=== PATIENT | male | born 2005 | race Caucasian/White ===

== ENCOUNTER 2024-12-06 18:06 | Inpatient (IN) | payer OTHER, SELFPAY ==
[2024-12-06 18:59] VITALS: BP 130/73; PULSE 107; RESP 16; TEMP 36.5; BMI 41.1
--- NOTE | 2024-12-06 20:06 | HP.PCM_ITS ---
HPI - General General Date of Admission: 12/06/24 Date of Service: 12/07/24 Chief Complaint: Here for rehabilitation. HPI Narrative KLAUDIA CHAMPAGNE, is a 19 Male who presents with followin11/30/2024 Admit [facility]. Tripped, fell, bilateral ankle pain, bilateral foot pain. Surgery with podiatry scheduled 12/02/2024. Unable to care for shelf. CT showed closed trimalleolar fracture left ankle, avulsion fracture right foot. Lovenox 40mg sc bid for dvt prophylaxis. 12/02/2024 Ortho performed ORIF left ankle fracture. NWB LLE with splint, NWB RLE. Percocet inadequate for pain, add IV pain medications. PT/OT, consider SNF. Resume Lovenox dvt prophylaxis. 12/03/2024 Tylenol, Percocet, Morphine for pain control. Miralax, Lactulose, senna for bowel regimen. NWB. PT/OT for SNF. 12/06/2024 Admit to TCU with debility, here for rehabilitation, strengthening, prior to discharge home. [facility] Medical History (Updated 12/06/24 @ 20:[address] Rolf Clifton MD) BMI 40.0-44.9, adult Morbid obesity Ankle fracture, right Ankle fracture, left Medical History no medical history Home Medications ?Medication ?Instructions ?Recorded ?Last Taken ?Type acetaminophen 325 mg capsule 650 mg PO Q4H PRN fever 0 12/06/24 Unknown History cholecalciferol (vitamin D3) 50 2,000 unit PO DAILY Smalls pplement 12/06/24 Unknown History mcg (2,000 unit) capsule lactulose 20 gram/30 mL oral 20 g PO DAILY Constipatio n 12/06/24 Unknown History solution oxycodone-acetaminophen 5 mg-325 1 tab PO Q4H Pain 08/20 Unknown History mg tablet (Endocet) polyethylene glycol 3350 17 17 g PO DAILY Constipation 12/06/24 Unknown History gram/dose oral powder (Miralax) sennosides 8.6 mg-docusate sodium 2 tab-cap PO QHS Con stipation 12/06/24 Unknown History 50 mg tablet (Senna Plus) Allergy/AdvReac Type Severity Reaction Status Date / Time No Known Allergies Allergy Verified 12/06/24 19:52 Family History unable to obtain Surgical History (Updated 12/07/24 @ 07:[address] Rolf Clifton MD) History of open reduction and internal fixation (ORIF) procedure Social History (Updated 12/06/24 @ 20:[address] Rolf Clifton MD) household members: family Smoking Status: Never smoker alcohol intake: never substance use type: does not use ROS Constitutional Constitutional: Denies chills, fever(s) or weight gain ENT HEENT: Denies headache(s), nasal congestion or nasal discharge Cardiovascular Cardiovascular: Denies chest pain or palpitations Respiratory/Chest Respiratory/Chest: Denies cough, excessive phlegm production or shortness of breath with exertion Gastrointestinal Gastrointestinal: Denies abdominal pain, nausea or vomiting Genitourinary Genitourinary: Denies dysuria Musculoskeletal Musculoskeletal: Denies joint pain or joint swelling Integumentary Integumentary: Denies rash or wounds Neurologic Neurologic: Denies focal weakness, numbness or tingling Psychiatric Psychiatric: Denies anxiety, auditory hallucinations, depression, homicidal ideation or suicidal ideation Vital Signs Vital Signs Vital Signs: 12/06/24 18:49 12/06/24 18:59 Temperature 97.7 F L Temperature Source Temporal Pulse Rate 107 H Pulse Rhythm Regular Pulse Strength Normal (2+) Respiratory Rate 16 Respiratory Effort Normal Non-Labored Respiratory Depth Normal Respiratory Pattern Normal Blood Pressure 130/73 H Blood Pressure Mean 92 Blood Pressure Source Monitor Blood Pressure Position Semi-Fowlers Blood Pressure Location Right Arm Oxygen Delivery Method Room Air Room Air Weight Weight: 157.141 kg Body Mass Index (BMI) 41.1 Physical Exam Const alert General Appearance: cooperative HEENT normocephalic Eyes PERRL and EOMs intact bilaterally Neck supple, no JVD and no carotid bruits Resp normal respiratory effort, normal air movement and clear to auscultation bilaterally Cardio regular rate and regular rhythm GI normal to inspection, nondistended, normoactive bowel sounds, non-tender and non-distended Extremity normal capillary refill Extremity Narrative: LLE splint, RLE boot. General Extremity: Negative for edema Skin no rashes or lesions noted General Skin Exam: no breakdown Psych affect normal Appearance: appropriate Results Lab / Micro Data 12/07/24 05:19 12/07/24 05:19 Assessment & Plan Assessment/Plan (1) BMI 40.0-44.9, adult: (2) Morbid obesity: (3) Debility: (4) Closed left trimalleolar fracture: (5) Foot fracture, right: PLAN: Plan 19 year old male with below past medical history hospitalized for closed left trimalleolar ankle fracture, avulsion right foot fracture, underwent ORIF left ankle fracture 12/02/2024, nwb bilateral lower extremities, admitted to TCU with debility, here for rehabiitation, strengthening, prior to discharge home with parents. * Debility - PT/OT. * Pain - Tylenol 650mg q4 prn pain (1-10), Oxycodone 5mg q4. * Bowel - Miralax 17gm daily, Lactulose 20gm daily, senna/colace 2 tablets qhs. * Adult immunization - Administer covid vaccine, flu vaccine as appropriate. * DVT prophylaxis - Lovenox 40mg sc daily. * Vitamin D deficiency - D3 50mcg daily. * Acute blood loss anemia - check iron studies.
[2024-12-06] MEDS: oxyCODONE 5 MG Tablet PO (20:24)
[2024-12-06] MEDS: Acetaminophen 325 MG Tablet 650 MG PO (20:24)
[2024-12-07] MEDS: Acetaminophen 325 MG Tablet 650 MG PO ×4 (02:04→16:54)
[2024-12-07] MEDS: oxyCODONE 5 MG Tablet PO ×4 (02:04→16:54)
[2024-12-07] MEDS: Enoxaparin 40 MG/0.4 ML Syringe SC (06:01)
[2024-12-07 06:25] LABS: Anion Gap 5 (5-15); BUN 18 mg/dL (7-18); BUN/Creat Ratio 24.6 RATIO (10-20); Calcium,Total 8.8 mg/dL (8.5-10.1); Chloride 106 mmol/L (98-107); Creatinine, Serum 0.73 mg/dL (0.70-1.30); EST Glomerular Filtration Rate 145 mL/min (>60); Est Glom Filt Rate - Afr Amer 175 mL/min (>60); Estimated Creatinine Clearance 265.56 ml/min; Glucose 99 mg/dL (74-106); Potassium 4.1 mmol/L (3.5-5.1); Sodium Level 138 mmol/L (136-145)
[2024-12-07 06:26] LABS: Absolute Lymphocyte Count 1.86 X10^3/uL (0.83-4.51); Absolute Neutrophil Count 6.1 X10^3/uL (2.0-7.7); Basophil# 0.04 X10^3/uL; Basophil% 0.5 % (0-1); Eosinophil# 0.28 X10^3/uL; Eosinophils% 3.2 % (0-5); Hematocrit 29.3 % (40-54); Hemoglobin 9.7 g/dL (13.0-16.5); Lymphocyte # 1.86 X10^3/ul (0.83-4.51); Lymphocyte % 21.2 % (19-41); Mean Corp Hgb Conc 33.1 g/dL (32-36); Mean Corpuscular Hgb 28.4 pg (27.0-32.0); Mean Corpuscular Volume 85.7 fL (80-94); Mean Platelet Vol. 10.8 fl (6.2-12.0); Monocyte# 0.51 X10^3/uL; Monocyte% 5.8 % (0-10); NRBC Flagged by Analyzer 0 % (0-5); Neutrophil # 6.05 X10^3/uL (2.7-7.7); Platelet Count 262 K/mm3 (150-450); RBC Distribution Width CV 12.7 % (11.6-14.6); Red Blood Count 3.42 M/mm3 (4.6-6.2); White Blood Count 8.8 K/mm3 (4.4-11.0)
[2024-12-07 08:50] LABS: Iron 26 ug/dL (65-175); Iron Binding Capacity,Total 282 ug/dL (250-450); PERCENT IRON SATURATION 9.2 % (15.0-55.0)
[2024-12-07] MEDS: Cholecalciferol (VIT D3) 25 MCG TABLET (1,000 UNITS) 50 MCG PO (09:01)
[2024-12-07] MEDS: Tuberculin,Purif.prot.deriv. 50 TU/ML Vial 0.1 ML ID (10:24)
--- NOTE | 2024-12-07 10:45 | PCM.PN.DRR ---
Documented by User: Zeenat De Souza 12/07/24 10:52 TCU RX Drug Regimen Review Subjective/Objective Subjective/Objective Subjective: TCU Admission. 19 YOM presented to outside ER, hospitalized for closed left trimalleolar ankle fracture, avulsion right foot fracture, underwent ORIF left ankle fracture 12/02/2024, nwb bilateral lower extremities. Admitted to TCU with debility for strengthening and rehabilitation. Objective: Allergies No Known Allergies Allergy (Verified 12/06/24 19:52) Current Medications Generic Name Dose Route Start Last Admin Trade Name Freq PRN Reason Stop Dose Admin Acetaminophen 650 mg 12/07/24 07:44 Acetaminophen 325 Mg Tablet PO Q4H PRN Pain Score 1-10 Cholecalciferol 50 mcg 12/07/24 10:00 12/07/24 09:01 Cholecalciferol (Vit D3) 25 Mcg Tablet (1,000 Units) PO 12/31/24 10:01 50 mcg DAILY AMARA Administration Enoxaparin Sodium 40 mg 12/07/24 06:00 12/07/24 06:01 Enoxaparin 40 Mg/0.4 Ml Syringe SC 40 mg DAILY@0600 AMARA Administration Lactulose 20 gm 12/07/24 10:00 12/07/24 09:03 Lactulose 20 Gm/30 Ml Udc PO Not Given DAILY AMARA Oxycodone HCl 5 mg 12/07/24 07:44 Oxycodone 5 Mg Tablet PO Q4 PRN Pain Score 1-10 or Pre PT/OT Polyethylene Glycol 17 gm 12/07/24 10:00 12/07/24 09:04 Polyethylene Glycol 3350 17 Gm Packet PO Not Given DAILY AMARA Senna/Docusate Sodium 2 tablet 12/06/24 22:00 12/06/24 20:26 Senna/Docusate Sodium 1 Tablet PO Not Given QHS AMARA Sodium Chloride 10 - 40 ml 12/06/24 18:49 0.9% Saline Lock 10 Ml Syringe IV UD PRN SALINE FLUSH Tuberculin PPD 0.1 ml 12/14/24 10:00 Tuberculin,Purif.Prot.Deriv. 50 Tu/Ml Vial ID 12/14/24 10:01 X1 ONE Problem List Foot fracture, right (Acute) Closed left trimalleolar fracture (Acute) Debility (Acute) BMI 40.0-44.9, adult (Acute) Morbid obesity (Acute) Vital Signs Temp Pulse Resp BP O2 Del Method 97.7 F L 107 H 16 130/73 H Room Air 12/06/24 18:59 12/06/24 18:59 12/06/24 18:59 12/06/24 18:59 12/06/24 18:59 Oxygen Delivery Method Room Air Weight: 157.141 kg Body Mass Index (BMI) 41.1 Sodium 138 mmol/L (136-145) 12/07/24 05:19 Potassium 4.1 mmol/L (3.5-5.1) 12/07/24 05:19 Chloride 106 mmol/L (98-107) 12/07/24 05:19 Carbon Dioxide 27.0 mmol/L (21.0-32.0) 12/07/24 05:19 Anion Gap 5 (5-15) 12/07/24 05:19 BUN 18 mg/dL (7-18) 12/07/24 05:19 Creatinine 0.73 mg/dL (0.70-1.30) 12/07/24 05:19 Est GFR (MDRD) Af Amer 175 mL/min (>60) 12/07/24 05:19 Est GFR (MDRD) Non-Af 145 mL/min (>60) 12/07/24 05:19 BUN/Creatinine Ratio 24.6 RATIO (10-20) H 12/07/24 05:19 Glucose 99 mg/dL (74-106) 12/07/24 05:19 Assessment/Plan: 1. Pain: acetaminophen 650mg PO Q4H PRN pain 1-10 and oxycodone 5mg PO Q4H PRN pain 1-10. Resident had 3 doses of oxycodone prior to change to PRN. Resident has had 3 doses of acetaminophen for pain of 5 and 7 in the ankle/foot. Please continue to monitor for increased pain, PRN usage, constipation and respiratory depression. 2. Bowel: Miralax 17gm PO daily, lactulose 20mg PO daily and senna/docusate 2T PO QHS. Resident has refused all so far. Please continue to monitor for constipation. Last documented bowel movement was 12/06. 3. DVT prophylaxis: enoxaparin 40mg SC daily. Resident has a BMI >40, could consider increasing to 40gm BID if clinically appropriate. Thanks. Please continue to monitor for S/S fo bleeding, hemoglobin (last 9.7g/dL), platelets (last 262,000) and renal function. 4. Vitamin D deficiency: cholecalciferol 50mcg PO daily thru 12/31/24. Please consider ordering a vitamin D level if one was not drawn at previous facility. No levels in our chart. Thanks. Assessment/Plan for indications treated with psychotropic medications: None Medical chart and medication regimen reviewed. The following medication irregularities or issues were identified: 1. Enoxaparin 40mg SC daily. Resident has a BMI >40, could consider increasing to 40gm BID if clinically appropriate. Thanks. 2. Cholecalciferol 50mcg PO daily thru 12/31/24. Please consider ordering a vitamin D level if one was not drawn at previous facility. No levels in our chart. Thanks. Date Date of Note: 12/07/24 Documented by User: Dr. Rolf Clifton MD 12/07/24 11:44 TCU RX Drug Regimen Review Provider Comments Provider responsibility Provider Comments to Recommendations by Pharmacy Agree (Keep Lovenox 40mg sc daily for now.)
--- NOTE | 2024-12-07 12:21 | NURSING ---
Attempted to call Dr. Cleaning consult. She is not video control engineer and office closed today. Will pass along to follow-up tomorrow.
--- NOTE | 2024-12-07 15:15 | CASEMGMT ---
Social Work SW met with patient to complete initial assessment. Introduced self and role. Verified contacts. Pt confirmed code status as full code. Educated to [employer] insurance with [employer]D 12/13 and continued stay is not guaranteed with each review; no advanced notice will be given for DC. Pt's goal is to return home living with mother. See SW assessment for barriers. SW will continue to follow for DC planning and needs. Steph Brunson MILL OPERATOR HEAD INSTRUCTIONAL TECHNOLOGY DIRECTOR
[2024-12-07 16:00] VITALS: BP 132/83; PULSE 96; RESP 16; TEMP 36; O2SAT 96
[2024-12-07 20:39] LABS: Vitamin D,25 Hydroxy 22.4 ng/mL
[2024-12-07 22:35] VITALS: RESP 16
[2024-12-08] MEDS: Acetaminophen 325 MG Tablet 650 MG PO ×4 (00:21→19:00)
[2024-12-08] MEDS: oxyCODONE 5 MG Tablet PO ×4 (00:21→19:00)
[2024-12-08] MEDS: Enoxaparin 40 MG/0.4 ML Syringe SC (04:59)
[2024-12-08 05:00] VITALS: PULSE 80; RESP 16
[2024-12-08 08:08] VITALS: BP 142/71; PULSE 95; RESP 15; TEMP 36.7; O2SAT 98
[2024-12-08] MEDS: Cholecalciferol (VIT D3) 25 MCG TABLET (1,000 UNITS) 50 MCG PO (08:12)
--- NOTE | 2024-12-08 09:10 | NURSING ---
Called Dr. Cleaning's office and spoke with her. She reports she will follow resident here, will plan to come see him on the unit . Updated resident.
[2024-12-08] MEDS: Iron Polysaccharide Complex 150 MG CAPSULE PO (09:58)
--- NOTE | 2024-12-08 15:58 | NURSING ---
Statistical Reporting Analyst Note; Activity Asset: Sonny Carlson is independent in his choice of daily activities. He has his video game, laptop, smartphone here and he uses them. Family will be in during the evening time to visits. He prefers in room activities over group and was informed of the sitting room if her would like to get out of his room and sit there as well. Staff will remind him of weekly activities and respect his right to say no.
[2024-12-09] MEDS: Enoxaparin 40 MG/0.4 ML Syringe SC (05:35)
[2024-12-09] MEDS: Acetaminophen 325 MG Tablet 650 MG PO ×3 (05:35→20:54)
[2024-12-09 05:50] LABS: Hemoglobin 9.8 g/dL (13.0-16.5)
[2024-12-09] MEDS: Cholecalciferol (VIT D3) 25 MCG TABLET (1,000 UNITS) 50 MCG PO (09:47)
[2024-12-09] MEDS: Polyethylene Glycol 3350 17 GM PACKET PO (09:47)
[2024-12-09] MEDS: Lactulose 20 GM/30 ML UDC PO (09:47)
[2024-12-09] MEDS: oxyCODONE 5 MG Tablet PO ×3 (12:03→20:53)
[2024-12-09 15:29] VITALS: BP 131/81; PULSE 90; RESP 16; TEMP 36.4; O2SAT 100
[2024-12-09] MEDS: Iron Polysaccharide Complex 150 MG CAPSULE PO (16:31)
[2024-12-10] MEDS: Enoxaparin 40 MG/0.4 ML Syringe SC (05:19)
[2024-12-10] MEDS: oxyCODONE 5 MG Tablet PO ×3 (05:20→18:25)
[2024-12-10] MEDS: Acetaminophen 325 MG Tablet 650 MG PO ×2 (05:20→20:07)
[2024-12-10 08:14] VITALS: BMI 40.8
[2024-12-10 08:59] VITALS: BP 126/74; PULSE 72; RESP 16; TEMP 36.8; O2SAT 98
[2024-12-10] MEDS: Lactulose 20 GM/30 ML UDC PO (09:02)
[2024-12-10] MEDS: Polyethylene Glycol 3350 17 GM PACKET PO (09:02)
[2024-12-10] MEDS: Cholecalciferol (VIT D3) 25 MCG TABLET (1,000 UNITS) 50 MCG PO (09:02)
[2024-12-10] MEDS: Iron Polysaccharide Complex 150 MG CAPSULE PO (09:02)
--- NOTE | 2024-12-10 09:09 | NURSING ---
Addendum entered by Thalia Perez 12/10/24 11:18: Call back from mother that they are going to have to use a different vehicle, their Ginette crossover. Let her know nursing updated PT, will make it work. She was very thankful for assistance setting up details. Addendum entered by Thalia Perez 12/10/24 11:07: Spoke with Mary at Dr. Salazar's office, clarified that Dr. Cleaning unable to come to [facility] and that office appt set up for 12/13/24 @ 1130. Discussed with resident, Jero PT, and resident's mother. Decided that mother will transport, she will bring their [employer] vehicle, and will use a WC and slide board from [facility]. Will plan to leave for appt at 1045. Original Note: Note left that Dr. Cleaning unable to come by and see resident yesterday. RN called and spoke with resident's mother, she had made follow-up for Friday12/13/24 @1130 just in case. Discussed transport options and she did not want physicians set up, doesn't want to have to pay for transport saying they have bills piling up. Let her know this RN would reach out to Dr. Cleaning's office and PT and see what the options are.
--- NOTE | 2024-12-10 14:19 | CASEMGMT ---
BIMS () and PHQ2 () interview completed on this date for MDS assessment. ENOCH Go
--- NOTE | 2024-12-10 14:57 | CHAPLAIN ---
Type of Pastoral Visit _x__ Initial Visit ___ Follow-up Visit ___ On-call Visit ___ General Patient Visit ___ Spiritual Assessment ___ Family Conference ___ Bereavement ___ Rapid Response ___ Code Blue ___ Other (describe below) Pastoral Care Referral From _x__ Patient ___ Family ___ Nurse ___ Physician ___ Molding Machine Operator ___ Used Building Materials Yard Worker ___ Other (describe below) Sacrament/Intervention _x__ Active listening ___ Anointing ___ Restoration ___ Bereavement ___ Communion _x__ Jody exploration ___ _x__ Life review _x__ Prayer ___ Reconciliation ___ Sacrament of Sick _x__ Supportive presence ___ Wedding ___ Other (describe below) Pastoral Comments patient is open to sharing his story of injury and surgery; pt presents with positive outlook and an understanding that he can use this time 'to figure out what I want to do in life and to find my mission'; pt says that he does not get depressed and doesn't expect to have bad thoughts; pt is asked about how he yumiko so well and he states just how I am; pt is not quaker but has gone to a few churches and just doesn't think much about that; pt denies any needs; pt is pleasant to talk with; pt acknowledges that prayer would be fine to receive
--- NOTE | 2024-12-10 20:10 | NURSING ---
Shower offered x3 attempts despite encouragement and education , too tired, maybe in the morning. A&Ox4. Able to voice needs. PRN Tylenol administered at this time per request. No distress observed or reported. Bilat popliteal pulses present. Denies numbness or tingling to BUE or BLE. Ice water and HS snack offered per pt. preferences. Denies further requests. Call light and personal items within reach.
--- NOTE | 2024-12-11 05:12 | NURSING ---
PIN MACHINE OPERATOR providing shower at this time per pt. request
[2024-12-11] MEDS: oxyCODONE 5 MG Tablet PO ×3 (06:04→16:39)
[2024-12-11] MEDS: Acetaminophen 325 MG Tablet 650 MG PO ×2 (06:04→14:56)
[2024-12-11 08:41] VITALS: BP 125/72; PULSE 75; RESP 17; TEMP 36.8; O2SAT 92
[2024-12-11] MEDS: Iron Polysaccharide Complex 150 MG CAPSULE PO (08:46)
[2024-12-11] MEDS: Enoxaparin 40 MG/0.4 ML Syringe SC (08:46)
[2024-12-11] MEDS: Polyethylene Glycol 3350 17 GM PACKET PO (08:47)
[2024-12-11] MEDS: Cholecalciferol (VIT D3) 25 MCG TABLET (1,000 UNITS) 50 MCG PO (08:47)
[2024-12-11] MEDS: Senna/Docusate Sodium 1 Tablet 2 TABLET PO (20:39)
[2024-12-12 10:17] VITALS: BP 108/59; PULSE 71; RESP 16; TEMP 36.8; O2SAT 97
[2024-12-12] MEDS: Iron Polysaccharide Complex 150 MG CAPSULE PO (10:19)
[2024-12-12] MEDS: oxyCODONE 5 MG Tablet PO ×3 (10:19→21:12)
[2024-12-12] MEDS: Polyethylene Glycol 3350 17 GM PACKET PO (10:20)
[2024-12-12] MEDS: Cholecalciferol (VIT D3) 25 MCG TABLET (1,000 UNITS) 50 MCG PO (10:20)
[2024-12-12] MEDS: Enoxaparin 40 MG/0.4 ML Syringe SC (10:20)
[2024-12-13] MEDS: Enoxaparin 40 MG/0.4 ML Syringe SC (05:23)
[2024-12-13] MEDS: oxyCODONE 5 MG Tablet PO ×3 (05:23→14:07)
[2024-12-13 10:20] VITALS: BP 132/74; PULSE 86; RESP 16; TEMP 36.2; O2SAT 94
[2024-12-13] MEDS: Polyethylene Glycol 3350 17 GM PACKET PO (10:25)
[2024-12-13] MEDS: Cholecalciferol (VIT D3) 25 MCG TABLET (1,000 UNITS) 50 MCG PO (10:25)
[2024-12-13] MEDS: Iron Polysaccharide Complex 150 MG CAPSULE PO (10:25)
--- NOTE | 2024-12-13 10:27 | NURSING ---
Crown Ceramist Note; MDS 12/13/2024 Complete
[2024-12-13] MEDS: Acetaminophen 325 MG Tablet 650 MG PO (14:08)
--- NOTE | 2024-12-13 15:54 | CASEMGMT ---
Social Work DEXTER spoke with mother after pt's follow up appt. Mother stated the car transfer was nadine but agreed pt transfers well using the slideboard. Per mother and RN, Dr increased LLE to PWB but RLE remains NWB. DEXTER spoke with TECHNICAL SERVICE REPRESENTATIVE and would like to continue working with pt prior to DC, considering pt will still need to likely bear more that partial weight to complete steps at home. Mother agrees and has spoken with pt, pt also agrees to remain if insurance approves. SW discussed DME needs with mother. SW to coordinate slideboard, w/c w/elevating leg rests and drop arm BSC for homegoing, pending insurance approval. Mother appreciative. SW will notify mother and pt of insurance outcome. Will continue to follow. Steph Brunson REGULATORY INTERNSHIP STUDENT LIFE VICE PRESIDENT
--- NOTE | 2024-12-13 17:18 | DS.PCM_ITS ---
Providers Date of Admission: 12/06/24 Primary Care Physician: Dr. Kishore Rico MD Consultations 12/07/24 07:40 Consult: Podiatry Routine Consulting Provider: Jackie Cleaning Reason for Consult: Left trimalleolar fracture, right avulsion fracture foot. EMERGENT Consult: No MD Notified: Yes Date Notified: 12/08/24 Time Notified: 09:15 Method of Notification: Verbal Reason For Visit: LEFT ANKLE ORIF, RLE SOFT TISSUE INJURY WITH Diagnosis Discharge Diagnosis (1) BMI 40.0-44.9, adult: Status: Acute Code(s): Z68.41 - Body mass index [BMI] 40.0-44.9, adult (2) Morbid obesity: Status: Acute Code(s): E66.01 - Morbid (severe) obesity due to excess calories (3) Debility: Status: Acute Code(s): R53.81 - Other malaise (4) Closed left trimalleolar fracture: Status: Acute Code(s): S82.852A - Displaced trimalleolar fracture of left lower leg, initial encounter for closed fracture (5) Foot fracture, right: Status: Acute Code(s): S92.901A - Unspecified fracture of right foot, initial encounter for closed fracture Plan 19 year old male with below past medical history hospitalized for closed left trimalleolar ankle fracture, avulsion right foot fracture, underwent ORIF left ankle fracture 12/02/2024, nwb bilateral lower extremities, admitted to TCU with debility, here for rehabiitation, strengthening, prior to discharge home with parents. * Debility - PT/OT. * Pain - Tylenol 650mg q4 prn pain (1-10), Oxycodone 5mg q4. * Bowel - Miralax 17gm daily, Lactulose 20gm daily, senna/colace 2 tablets qhs. * Adult immunization - Administer covid vaccine, flu vaccine as appropriate. * DVT prophylaxis - Lovenox 40mg sc daily. * Vitamin D deficiency - D3 50mcg daily. * Acute blood loss anemia - check iron studies. Medications at Discharge Home Medications acetaminophen 325 mg tablet 650 mg (2 x 325 mg) PO Q4H PRN Pain Score 1-10 #0 tabs 12/20/24 cholecalciferol (vitamin D3) 50 mcg (2,000 unit) capsule 2,000 unit PO DAILY Supplement 30 days #30 caps 12/20/24 gabapentin 100 mg capsule 100 mg PO TIDCM 30 days #90 caps 12/20/24 oxycodone 5 mg tablet 5 mg PO Q4 PRN Pain Score 1-10 Or Pre Pt/Ot 7 days #42 tabs 12/20/24 oxycodone 5 mg tablet 10 mg (2 x 5 mg) PO DAILY PRN Pain Score 1-10 Or Pre Pt/Ot 7 days #14 tabs 12/20/24 polysaccharide iron complex 150 mg iron capsule (Ferrex) 150 mg PO DAILY 30 days #30 caps 12/20/24 sennosides 8.6 mg-docusate sodium 50 mg tablet (Stimulant Laxative Plus) 2 tab PO QHS 30 days #60 tabs 12/20/24 Hospital Course Operations - (See below.) Procedures None Summary of Care Provided Hospital Course: 19 year old male with below past medical history hospitalized for closed left trimalleolar ankle fracture, avulsion right foot fracture, underwent ORIF left ankle fracture 12/02/2024, nwb bilateral lower extremities, admitted to TCU with debility, here for rehabiitation, strengthening, prior to discharge home with parents. Discharge home with mother 12/21/2024, [facility] PT, 22 inch wheelchair with ELR, bariatric FWW, bariatric 3-in-1 commode. 3-in-1 Commode: Patient has limited mobility and is unable to access the area where the toilet is located. Wheelchair with elevating leg rests: Patient has a mobility limitation that cannot be sufficiently resolved by using a cane or walker. Use of a w/c will improve the participating of ADLs on a regular basis in the home. Patient can independently self-propel. Walker: Patient is unsafe to use a cane and requires a walker for ambulation in the home and the community. Due to weight bearing status, and patient's home set up, patient needs the FWW to access parts of the home that are inaccessible via w/c. Physical Exam Const alert General Appearance: cooperative HEENT normocephalic Eyes PERRL and EOMs intact bilaterally Neck supple, no JVD and no carotid bruits Resp normal respiratory effort, normal air movement and clear to auscultation bilaterally Cardio regular rate and regular rhythm GI normal to inspection, nondistended, normoactive bowel sounds, non-tender and non-distended Extremity normal capillary refill Extremity Narrative: LLE splint, RLE boot. General Extremity: Negative for edema Skin no rashes or lesions noted General Skin Exam: no breakdown Psych affect normal Appearance: appropriate Weight / BMI Weight Weight: 153.904 kg Body Mass Index (BMI) 40.2 ABG / Lab / Microbiology Data 12/14/24 05:09 12/14/24 05:09 Microbiology: Microbiology 12/15/24 06:22 Nasal Secretion SARS-CoV-2 Antigen (Rapid) - Final 12/08/24 05:05 Nasal Secretion SARS-CoV-2 Antigen (Rapid) - Final D/C Instructions Discharge Diet: No restrictions Discharge Activity: Return to Normal Activity and Use Walker Weight Bearing Status: Partial weight bearing (Right lower extremity.) and No weight bearing (Left lower extremity.) Call your doctor if you observe: Fever of 101 or Higher, Inability to urinate, Inability to have a bowel movement, Shortness of breath, Dizziness, Fainting spells, Swelling in the ankles, Chest pain and Uncontrolled pain DC O2, CPAP, BIPAP Needs Home O2 Discharge instructions: No Additional Instructions: Discharge home with mother 12/21/2024, [facility] PT, 22 inch wheelchair with ELR, bariatric FWW, bariatric 3-in-1 commode. 3-in-1 Commode: Patient has limited mobility and is unable to access the area where the toilet is located. Wheelchair with elevating leg rests: Patient has a mobility limitation that cannot be sufficiently resolved by using a cane or walker. Use of a w/c will improve the participating of ADLs on a regular basis in the home. Patient can independently self-propel. Walker: Patient is unsafe to use a cane and requires a walker for ambulation in the home and the community. Due to weight bearing status, and patient's home set up, patient needs the FWW to access parts of the home that are inaccessible via w/c. Please Follow Up With: Jackie Cleaning When: As scheduled. Meaningful Use Info Meaningful Use Meaningful Use Diagnoses (Choose all that apply): None applicable Ischemic Stroke Statin Dosing Therapy Reference: STATIN DOSE THERAPY REFERENCE: * Patients > 75 years receive moderate or high dose statin therapy. * Patients 75 years or YOUNGER should receive HIGH intensity statin dose unless contraindicated. You will be required to document reason for non-treatment if statin daily dose does not meet guidelines. HIGH DOSE STATIN THERAPY DAILY Atorvastatin > than or = to 40 mg Rosuvastatin > than or = to 20 mg Amlodipine + Atorvastatin > than or = to 2.5/40 mg Ezetimibe + Simvastatin 10/80 mg Simvastatin 80mg Discharge Plan Admission Admit Date/Time: 12/06/24 18:06 Primary Reason for Your Visit: Debility. Attending Provider: Rolf Clifton Chi Primary Care Provider: Kishore Rico Consulting Providers: Jackie Cleaning Instructions Additional Instructions / Restrictions: Discharge home with mother 12/21/2024, [facility] PT, 22 inch wheelchair with ELR, bariatric FWW, bariatric 3-in-1 commode. 3-in-1 Commode: Patient has limited mobility and is unable to access the area where the toilet is located. Wheelchair with elevating leg rests: Patient has a mobility limitation that cannot be sufficiently resolved by using a cane or walker. Use of a w/c will improve the participating of ADLs on a regular basis in the home. Patient can independently self-propel. Walker: Patient is unsafe to use a cane and requires a walker for ambulation in the home and the community. Due to weight bearing status, and patient's home set up, patient needs the FWW to access parts of the home that are inaccessible via w/c. Discharge Orders/Prescriptions Prescriptions: New acetaminophen 325 mg Tablet 650 mg PO Q4H PRN (Reason: Pain Score 1-10) Qty: 0 0RF polysaccharide iron complex [Ferrex 150] 150 mg iron Capsule 150 mg PO DAILY 30 Days Qty: 30 0RF sennosides-docusate sodium [Stimulant Laxative Plus] 8.6-50 mg Tablet 2 tab PO QHS 30 Days Qty: 60 0RF gabapentin 100 mg Capsule 100 mg PO TIDCM 30 Days Qty: 90 0RF oxycodone 5 mg Tablet 5 mg PO Q4 PRN (Reason: Pain Score 1-10 Or Pre Pt/Ot) 7 Days Qty: 42 0RF oxycodone 5 mg Tablet 10 mg PO DAILY PRN (Reason: Pain Score 1-10 Or Pre Pt/Ot) 7 Days Qty: 14 0RF Continued cholecalciferol (vitamin D3) 50 mcg (2,000 unit) capsule 2,000 unit PO DAILY 30 Days Qty: 30 0RF Discontinued acetaminophen 325 mg capsule 650 mg PO Q4H PRN (Reason: fever) lactulose 20 gram/30 mL solution 20 g PO DAILY oxycodone-acetaminophen [Endocet] 5-325 mg tablet 1 tab PO Q4H polyethylene glycol 3350 [Miralax] 17 gram/dose powder 17 g PO DAILY sennosides-docusate sodium [Senna Plus] 8.6-50 mg tablet 2 tab-cap PO QHS Referrals / Follow Up: Kishore Rico MD [Primary Care Provider] - Disposition Disposition (needs filled in before D/C Order can be placed): Home Health Service
[2024-12-14 05:57] LABS: Absolute Lymphocyte Count 2.27 X10^3/uL (0.83-4.51); Absolute Neutrophil Count 4.6 X10^3/uL (2.0-7.7); Basophil# 0.04 X10^3/uL; Basophil% 0.5 % (0-1); Eosinophil# 0.37 X10^3/uL; Eosinophils% 4.7 % (0-5); Hematocrit 33.6 % (40-54); Hemoglobin 10.6 g/dL (13.0-16.5); Lymphocyte # 2.27 X10^3/ul (0.83-4.51); Lymphocyte % 28.9 % (19-41); Mean Corp Hgb Conc 31.5 g/dL (32-36); Mean Corpuscular Hgb 27.5 pg (27.0-32.0); Mean Platelet Vol. 10.8 fl (6.2-12.0); Monocyte# 0.53 X10^3/uL; Monocyte% 6.8 % (0-10); NRBC Flagged by Analyzer 0 % (0-5); Neutrophil # 4.62 X10^3/uL (2.7-7.7); Neutrophil % 58.8 % (47-70); Platelet Count 314 K/mm3 (150-450); RBC Distribution Width CV 12.9 % (11.6-14.6); RBC Distribution Width SD 40.3 fl (35.1-43.9); Red Blood Count 3.86 M/mm3 (4.6-6.2); White Blood Count 7.9 K/mm3 (4.4-11.0)
[2024-12-14 06:31] LABS: Anion Gap 9 (5-15); BUN 14 mg/dL (7-18); BUN/Creat Ratio 17.5 RATIO (10-20); Calcium,Total 8.9 mg/dL (8.5-10.1); Chloride 107 mmol/L (98-107); EST Glomerular Filtration Rate 131 mL/min (>60); Est Glom Filt Rate - Afr Amer 158 mL/min (>60); Estimated Creatinine Clearance 242.35 ml/min; Glucose 99 mg/dL (74-106); Potassium 4.3 mmol/L (3.5-5.1); Sodium Level 142 mmol/L (136-145)
[2024-12-14 08:00] VITALS: BMI 40.2
[2024-12-14] MEDS: Enoxaparin 40 MG/0.4 ML Syringe SC (09:10)
[2024-12-14] MEDS: Iron Polysaccharide Complex 150 MG CAPSULE PO (09:10)
[2024-12-14] MEDS: Cholecalciferol (VIT D3) 25 MCG TABLET (1,000 UNITS) 50 MCG PO (09:10)
[2024-12-14] MEDS: Polyethylene Glycol 3350 17 GM PACKET PO (09:10)
[2024-12-14] MEDS: Tuberculin,Purif.prot.deriv. 50 TU/ML Vial 0.1 ML ID (09:16)
[2024-12-14] MEDS: oxyCODONE 5 MG Tablet PO ×2 (09:16→15:13)
--- NOTE | 2024-12-14 11:14 | NURSING ---
Offered covid vaccine, VIS provided. Resident declines at this time.
[2024-12-14 16:00] VITALS: BP 148/84; PULSE 77; RESP 16; TEMP 36.2; O2SAT 97
[2024-12-15] MEDS: oxyCODONE 5 MG Tablet PO ×2 (03:45→09:38)
--- NOTE | 2024-12-15 06:28 | NURSING ---
Patient requests Oxy 10mg dose with therapy RTN, patient discusses concerns with dose efficacy over time and addiction to opioids. Patient educated on opioids and possibility of addiction and to take drug as ordered for pain. Patient educated that Oxycodone can become a habit forming drug, patient verbalizes understanding. Written communication left for Dr. Clifton regarding patient request.
[2024-12-15] MEDS: Enoxaparin 40 MG/0.4 ML Syringe SC (09:33)
[2024-12-15] MEDS: Cholecalciferol (VIT D3) 25 MCG TABLET (1,000 UNITS) 50 MCG PO (09:34)
[2024-12-15] MEDS: Iron Polysaccharide Complex 150 MG CAPSULE PO (09:34)
[2024-12-15 09:44] VITALS: BP 121/81; PULSE 69; RESP 18; O2SAT 98
[2024-12-15] MEDS: Acetaminophen 325 MG Tablet 650 MG PO ×2 (11:15→22:18)
--- NOTE | 2024-12-15 13:21 | CASEMGMT ---
Addendum entered by Steph Brunson 12/15/24 13:35: Pt expressed increase in pain and pain medications not effective. SW left written communication to Dr to address. Original Note: Social Work IDT met with patient and mother for care plan meeting. Discussed patient's progress in PT/OT/SN. Educated to [facility] insurance who approved continued stay from today's update, with NRD 12/20, and continued stay is not guaranteed with each review. SW provided mother with written communication on insurance process and copay coverage during stay. Provided written information on DME and potential copay costs: drop arm BSC, 22in w/c w/ELR, slideboard. OT will continue practicing with toileting. IDT recommending continued stay. Mother agrees. Pt is agreeable to remain. SW will continue to follow for DC planning. Steph BELLAW
[2024-12-15] MEDS: oxyCODONE 5 MG Tablet 10 MG PO (14:28)
[2024-12-15 16:00] VITALS: TEMP 37.1
[2024-12-15] MEDS: Gabapentin 100 MG Capsule PO (18:27)
[2024-12-16] MEDS: Gabapentin 100 MG Capsule PO ×3 (08:19→16:46)
[2024-12-16] MEDS: Iron Polysaccharide Complex 150 MG CAPSULE PO (08:20)
[2024-12-16] MEDS: Enoxaparin 40 MG/0.4 ML Syringe SC (08:21)
[2024-12-16] MEDS: Cholecalciferol (VIT D3) 25 MCG TABLET (1,000 UNITS) 50 MCG PO (08:22)
[2024-12-16 08:26] VITALS: BP 125/70; PULSE 68; RESP 18; O2SAT 97
--- NOTE | 2024-12-16 09:13 | MDS.RN ---
Information for the MDS was obtained from review of the clinical record, interview of resident, staff, and direct observation of resident?s care.
[2024-12-16] MEDS: oxyCODONE 5 MG Tablet 10 MG PO (10:06)
[2024-12-16 10:10] VITALS: PULSE 81; RESP 18; O2SAT 97
--- NOTE | 2024-12-16 14:47 | NURSING ---
PT WAS GIVEN SHOWER TODAY BY THERAPY. THIS NURSE ALSO WASHED AND CHANGED PT DRESSING TO LT LOWER LEG/ANKLE PER ORDERS. NO S/S OF INFECTIONS,APPROXIMATED WELL,NO DRAINAGE STITCHES INTACT. A LOT OF BRUISING AND NON PITTING SWELLING. PT TOLERATED WELL.
[2024-12-17 08:01] VITALS: BP 134/72; PULSE 71; RESP 18; TEMP 35.9; O2SAT 97
[2024-12-17] MEDS: Iron Polysaccharide Complex 150 MG CAPSULE PO (10:27)
[2024-12-17] MEDS: Gabapentin 100 MG Capsule PO ×3 (10:27→17:26)
[2024-12-17] MEDS: Enoxaparin 40 MG/0.4 ML Syringe SC (10:28)
[2024-12-17] MEDS: Cholecalciferol (VIT D3) 25 MCG TABLET (1,000 UNITS) 50 MCG PO (10:29)
[2024-12-18] MEDS: Cholecalciferol (VIT D3) 25 MCG TABLET (1,000 UNITS) 50 MCG PO (08:08)
[2024-12-18] MEDS: Enoxaparin 40 MG/0.4 ML Syringe SC (08:08)
[2024-12-18] MEDS: Iron Polysaccharide Complex 150 MG CAPSULE PO (08:08)
[2024-12-18] MEDS: Gabapentin 100 MG Capsule PO ×3 (08:08→17:14)
[2024-12-18 10:23] VITALS: BP 128/61; PULSE 70; RESP 16; TEMP 36.4; O2SAT 98
[2024-12-18] MEDS: oxyCODONE 5 MG Tablet 10 MG PO (12:05)
[2024-12-19] MEDS: Gabapentin 100 MG Capsule PO ×3 (07:55→17:33)
[2024-12-19] MEDS: Iron Polysaccharide Complex 150 MG CAPSULE PO (07:55)
[2024-12-19] MEDS: Cholecalciferol (VIT D3) 25 MCG TABLET (1,000 UNITS) 50 MCG PO (07:55)
[2024-12-19] MEDS: Enoxaparin 40 MG/0.4 ML Syringe SC (07:55)
[2024-12-19] MEDS: Acetaminophen 325 MG Tablet 650 MG PO ×2 (09:43→17:40)
[2024-12-19] MEDS: oxyCODONE 5 MG Tablet 10 MG PO (09:44)
[2024-12-19 10:13] VITALS: BP 129/74; PULSE 84; RESP 16; TEMP 36.4; O2SAT 98
[2024-12-19] MEDS: oxyCODONE 5 MG Tablet PO (17:40)
[2024-12-20 08:00] VITALS: BP 135/79; PULSE 70; RESP 16; TEMP 36.3; O2SAT 98
[2024-12-20] MEDS: Cholecalciferol (VIT D3) 25 MCG TABLET (1,000 UNITS) 50 MCG PO (08:18)
[2024-12-20] MEDS: Iron Polysaccharide Complex 150 MG CAPSULE PO (08:18)
[2024-12-20] MEDS: Enoxaparin 40 MG/0.4 ML Syringe SC (08:18)
[2024-12-20] MEDS: Gabapentin 100 MG Capsule PO ×3 (08:18→17:50)
[2024-12-20 10:15] VITALS: PULSE 70; RESP 16; O2SAT 98
--- NOTE | 2024-12-20 10:55 | CASEMGMT ---
Addendum entered by Steph Brunson 12/21/24 08:40: Correction: HHC agency was [facility], it was [place] [facility]. They cannot accept. Addendum entered by Steph Brunson 12/20/24 16:12: Mother chose [facility] agencies and this worker placed referrals via CarePort. [place] is OON with insurance. Left VM with [facility]. Spoke with [facility] office and did not receive via CarePort - requesting fax. SW faxed referral. Will await outcomes. Addendum entered by Steph Brunson 12/20/24 11:34: [facility] does not service pt's address. SW sent CarePort Link to mother to choose additional agencies. Original Note: Social Work SW received VM over the weekend from pt's mother request to DC Wednesday 12/20. - SW returned call to mother to acknowledge DC request, but given the DME pt needs, pt will not be able to DC without advanced notice. Mother expressed understanding. SW offered if DME can be in place, DC 12/21. SW reviewed DME needs from IT APPLICATION DEVELOPMENT MANAGER and updated mother. Pt is no longer using the slideboard, given increased WBS. Pt is using walker for shorter distances and for steps and w/c for longer distances. Given pt's stature, pt will still not be able to access the home's bathroom with the walker, and will need a BSC. Mother accepted. SW to speak with pt to review as well. Now with DC date, SW to update [employer] for pricing and availability, then will update mother. Mother appreciative. - DEXTER spoke with pt at bedside with IT APPLICATION DEVELOPMENT MANAGER present. Confirmed DC 12/21 with above noted DME. Pt agreeable and expressed understanding. IT APPLICATION DEVELOPMENT MANAGER requesting [facility] PT to assist with home transition and set up. Pt agreeable. SW to review benefits to ensure pt can use currently or if he should wait until WBS increases. SW offered list of [facility] agencies including quality and resource data via CarePort Guide. Pt has no preference and agreeable to [facility]. - DEXTER phoned [facility] to inquire about benefits. After phoning the insurance, pt has met his deductible and OOP max, thus [facility] is covered at 100%, and allows 60 visits per calendar year. SW officially provided referral for PT, if they can service pt's address. Will await outcome. [employer] provided updated pricing and all DME can be delivered to the pt's room prior to DC. - DEXTER phoned mother to update on HHC benefits and DME pricing. Mother appreciative. Will await [facility] outcome. DEXTER will continue to follow. Plan: DC home with mother 12/21, HHC PT, 22 inch w/c with ELR, bariatric FWW, bariatric 3-in-1 commode Steph Brunson PROCESS LINE OPERATOR ELECTRICAL AND INSTRUMENT TECHNICIAN
--- NOTE | 2024-12-20 11:17 | CASEMGMT ---
Social Work SW completed BIMS () and PHQ-2 () for MDS assessment. Steph Brunson [employer] RELATIONS COORDINATOR [employer] OFF[employer]
--- NOTE | 2024-12-20 14:51 | NURSING ---
Dressing to LLE changed per orders. Tolerated well. No drainage/odor/redness noted. Sutures intact. DCD applied.
[2024-12-21 06:02] LABS: Absolute Lymphocyte Count 1.86 X10^3/uL (0.83-4.51); Absolute Neutrophil Count 3.4 X10^3/uL (2.0-7.7); Basophil# 0.03 X10^3/uL; Basophil% 0.5 % (0-1); Eosinophil# 0.18 X10^3/uL; Eosinophils% 3.1 % (0-5); Hematocrit 35.1 % (40-54); Hemoglobin 11.3 g/dL (13.0-16.5); Lymphocyte # 1.86 X10^3/ul (0.83-4.51); Lymphocyte % 31.8 % (19-41); Mean Corp Hgb Conc 32.2 g/dL (32-36); Mean Corpuscular Hgb 28.3 pg (27.0-32.0); Mean Platelet Vol. 11.3 fl (6.2-12.0); Monocyte# 0.39 X10^3/uL; Monocyte% 6.7 % (0-10); NRBC Flagged by Analyzer 0 % (0-5); Neutrophil # 3.37 X10^3/uL (2.7-7.7); Neutrophil % 57.7 % (47-70); Platelet Count 261 K/mm3 (150-450); RBC Distribution Width SD 41.5 fl (35.1-43.9); Red Blood Count 3.99 M/mm3 (4.6-6.2); White Blood Count 5.8 K/mm3 (4.4-11.0)
[2024-12-21 06:14] LABS: Anion Gap 6 (5-15); BUN 11 mg/dL (7-18); BUN/Creat Ratio 16.5 RATIO (10-20); Chloride 107 mmol/L (98-107); Creatinine, Serum 0.67 mg/dL (0.70-1.30); EST Glomerular Filtration Rate 161 mL/min (>60); Est Glom Filt Rate - Afr Amer 195 mL/min (>60); Estimated Creatinine Clearance 286.12 ml/min; Glucose 94 mg/dL (74-106); Potassium 4.2 mmol/L (3.5-5.1); Sodium Level 142 mmol/L (136-145)
[2024-12-21 06:56] VITALS: RESP 17; O2SAT 98
--- NOTE | 2024-12-21 08:40 | CASEMGMT ---
Social Work DEXTER received no accepting [facility] agencies. DEXTER returned to the [facility] list and referred to the next highest star ratings - [id number], [facility], and [facility]. [facility] can accept, the other two cannot. [facility]. DC orders sent. Steph BELLAW
[2024-12-21] MEDS: Iron Polysaccharide Complex 150 MG CAPSULE PO (09:15)
[2024-12-21] MEDS: Gabapentin 100 MG Capsule PO ×2 (09:15→11:45)
[2024-12-21] MEDS: Cholecalciferol (VIT D3) 25 MCG TABLET (1,000 UNITS) 50 MCG PO (09:16)
[2024-12-21] MEDS: Enoxaparin 40 MG/0.4 ML Syringe SC (09:16)
[2024-12-21] MEDS: oxyCODONE 5 MG Tablet PO (09:18)
[2024-12-21] MEDS: Acetaminophen 325 MG Tablet 650 MG PO (09:18)
[2024-12-21 09:22] VITALS: BP 117/64; PULSE 81; RESP 18; TEMP 36.7; O2SAT 98
[2024-12-21 09:30] VITALS: BP 117/64; PULSE 81; RESP 18; TEMP 36.7; O2SAT 98
== END 2024-12-21 12:30 | disposition home health service (06) | DRG 560 ==
PROVIDERS: Admitting Provider Family Medicine Geriatric Medicine; Visit Provider Family Medicine Geriatric Medicine
DX: S82.852D Displaced trimalleolar fracture of left lower leg, subsequent encounter for closed fracture with routine healing (principal); Z68.41 Body mass index [BMI] 40.0-44.9, adult; E55.9 Vitamin D deficiency, unspecified; E66.01 Morbid (severe) obesity due to excess calories; W19.XXXD Unspecified fall, subsequent encounter; G62.9 Polyneuropathy, unspecified; S92.901D Unspecified fracture of right foot, subsequent encounter for fracture with routine healing; Z79.899 Other long term (current) drug therapy
CPT/HCPCS: 36415; 80048; 82306; 83540; 83550; 85014; 85018; 85025; 87811; 97110; 97162; 97166; 97530; 97535; 97542; 97802